=== PATIENT | female | born 1985 | race Caucasian/White ===

== ENCOUNTER → 2022-03-06 | Outpatient (CLI) | payer OTHER ==
[~2022-03-06] MED LIST: IBP800T PO; OXYC-12 PO
[2022-03-06 10:30] VITALS: BP 139/86
--- NOTE | 2022-03-06 11:58 | Cardiology Stress Test Report ---
Stress Test Report Date of Procedure/Referring: Date of Procedure: Mar 06, 2022 PCP Admitting Physician Admitting Physician: Attending Physician: Radha Espinoza Indications: CP Baseline Heart Rate: 80 Baseline Blood Pressure: Blood Pressure Systolic: 139 Blood Pressure Diastolic: 86 Baseline EKG: Baseline EKG: NSR Summary/Conclusion: Summary: In summary, the patient started exercising with a baseline heart rate, blood pressure and EKG mentioned above Patient was able to exercise for a total of 10.30 minutes on Matthew protocol, METs 12.1 Maximum heart rate 167 Maximum blood pressure 191/83 Stress EKG, Minimal nondiagnostic changes Recovery EKG , Return to baseline Conclusion: 1. Good exercise tolerance for a total of 10.30 minutes on Matthew protocol, 12.1 METs, achieving 91 percent of maximum expected heart rate 2. Minimal nondiagnostic EKG changes with exercise returned to baseline during recovery 3. No arrhythmia was noted 4. Hypertensive response to exercise with peak blood pressure 191/83 return to baseline during recovery Copy Copies To 1: [facility]/NAKIA EDWARDS MD Mar 06, 2022 11:58
== END ==
LOC: CARD 10:08
PROVIDERS: ATTEND Physician Assistant
DX: R07.9 Chest pain, unspecified (principal)
CPT/HCPCS: 93017